=== PATIENT | female | born 1995 | race Two or more races ===

== ENCOUNTER 2019-07-11 19:20 | Emergency (ER) | payer OTHER ==
[~2019-07-11] VITALS: Ht 149.9 cm; Wt 49.0 kg
[2019-07-11 19:46] VITALS: BP 109/73
--- NOTE | 2019-07-11 19:46 | NUR ---
ED Nurse Note: Patient walked into ED from home d/t flu-like symptoms - sore throat with voice loss, difficulty clearing secretions, headache, generalized body aches, nausea no vomiting, and diarrhea x 1. Patient pain 7/10 generalized body aching. Patient placed in gown and cardiac/vascular sonographer. AAO x 4 and ambulatory accompanied by family member. No acute distress noted at this time.
--- NOTE | 2019-07-11 19:48 | NUR ---
ED Nurse Note: ERMD at bedside.
--- NOTE | 2019-07-11 19:55 | NUR ---
ED Nurse Note: flu swab collected and sent to lab
--- NOTE | 2019-07-11 19:56 | Emergency Room Report ---
History of Present Illness General Chief Complaint: Flu Like Symptoms Source: Patient Present Illness HPI 23-year-old female with no past medical history presenting to emergency room with acute onset of cough for 2-day duration. Patient reports cough is nonproductive. Severe throat pain. Unable to tolerate p.o. due to pain. Patient denies any fevers but notes objective hot and cold. Patient did not receive influenza vaccination this year. Allergies: Coded Allergies: No Known Allergies (Unverified , 07/11/19) Patient History Last Menstrual Period: 06/11 Now: No : 0 Para: 0 Nursing Documentation-[facility] Past Medical History: No History, Except For Hx Cardiac Problems: No Hx Hypertension: No Hx Pacemaker: No Hx Asthma: No Hx COPD: No Hx Diabetes: No Hx Cancer: No Hx Gastrointestinal Problems: No Hx Dialysis: No Hx Neurological Problems: No Hx Cerebrovascular Accident: No Hx Seizures: No Review of Systems Constitutional: Denies: chills, fever ENT: Reports: throat pain Respiratory: Reports: cough; Denies: shortness of breath Cardiovascular: Denies: chest pain, palpitations Gastrointestinal: Denies: diarrhea, vomiting Genitourinary: Denies: hematuria, pain Musculoskeletal: Denies: joint swelling Skin: Denies: rash, lesions Neurological: Denies: headache, dizziness Physical Exam Vital Signs Date Time Temp Pulse Resp B/P (MAP) Pulse Ox O2 Delivery O2 Flow Rate FiO2 07/11/19 19:23 98.2 100 19 103/72 (82) 97 Room Air Sp02 EP Interpretation: reviewed General Appearance: well appearing, no apparent distress, non-toxic Head: normocephalic, atraumatic Eyes: bilateral eye normal inspection ENT: hearing grossly normal, EOM grossly intact, uvula midline, moist mucus membranes, pharyngeal erythema - Moderate to severe Neck: supple Respiratory: lungs clear, normal breath sounds, no rhonchi, no respiratory distress, no retraction, speaking full sentences Cardiovascular #1: regular rate, rhythm, no edema, no gallop, normal capillary refill Cardiovascular #2: 2+ radial (R), 2+ radial (L) Gastrointestinal: soft, non-distended Rectal: deferred Musculoskeletal: moves extm spontaneously, no lower extremity edema Neurologic: grossly normal Psychiatric: mood/affect normal Skin: warm/dry, normal turgor Lymphatic: adenopathy - Lymphadenopathy in left submandibular Medical Decision Making Diagnostic Impression: Primary Impression: Strep sore throat ER Course 23-year-old female presenting with severe cough and sore throat found to have posterior pharynx erythematous. And submandibular lymphadenopathy. Meets [facility] criteria for strep throat however given influenza season and patient with cough will test for influenza Last Vital Signs Date Time Temp Pulse Resp B/P (MAP) Pulse Ox O2 Delivery O2 Flow Rate FiO2 07/11/19 19:46 98 19 Room Air 07/11/19 19:46 98.2 109/73 98 Reevaluation Impression Patient stable for outpatient follow-up and discharge. Patient has no signs of respiratory distress or airway compromise. Disposition: HOME, SELF-CARE Condition: Stable Scripts Amoxicillin* (AMOXIL*) 500 Mg Capsule 500 MG ORAL THREE TIMES A DAY for 10 Days, #30 CAP Prov: Enrike Waller M.D. 07/11/19 Referrals: NOT CHOSEN [facility]/,REFERRING (PCP) Patient Instructions: Strep Throat, [id number] Additional Instructions: Please follow-up with your primary care doctor in 2 to 3 days for reevaluation. Please return to emergency room if you are unable to tolerate any liquids or medication by mouth. Or if you develop any new symptoms Enrike Waller M.D. Jul 11, 2019 19:56
[2019-07-11] MEDS ORDERED: Dexamethasone 4mg/ml vial IM ONE (20:00)
[2019-07-11] MEDS ORDERED: AMOXICILLIN500 MG ORAL (20:43)
[2019-07-11 20:56] VITALS: BP 112/78
--- NOTE | 2019-07-11 20:56 | NUR ---
ER DISCHARGE NOTE: Patient is cleared to be discharged per ERMD. Patient given dc instructions and prescription, verbalized understanding. Patient aao x 4 and ambulating with family member upon discharge. All medical devices and ID band removed. Patient discharged in stable condition.
== END 2019-07-11 20:56 | disposition home or self-care (01) ==
LOC: EMR 19:44
DX: J02.0 Streptococcal pharyngitis (principal)
CPT/HCPCS: 86710; 96372; 99283; J1100